=== PATIENT | female | born 1990 | race Caucasian/White ===

== ENCOUNTER 2018-03-06 13:10 | Emergency (ER) | payer OTHER ==
[~2018-03-06] VITALS: Ht 167.6 cm; Wt 74.8 kg
[~2018-03-06 13:10] MED LIST: CATAFLAM50 MG PO; SINGULAIR10 MG; URETRON D-S TAB1 TAB PO
== END 2018-03-06 18:00 | disposition home or self-care (01) ==
LOC: ER 13:10
DX: N83.291 Other ovarian cyst, right side (principal)

== ENCOUNTER 2019-06-17 11:39 | Outpatient (CLI) | payer OTHER | END 2019-06-17 11:52 | disposition home or self-care (01) | LOC: NUCLEAR 11:39 | DX: I20.9 Angina pectoris, unspecified (principal) ==

== ENCOUNTER 2020-02-01 19:39 | Emergency (ER) | payer OTHER ==
[~2020-02-01] VITALS: Ht 167.6 cm; Wt 70.3 kg
[2020-02-01] MEDS ORDERED: SPIRIVA RESPIMAT4 G1 IH (20:20)
== END 2020-02-01 21:57 | disposition home or self-care (01) ==
LOC: ER 19:39
DX: S50.01XA Contusion of right elbow, initial encounter (principal); W18.09XA Striking against other object with subsequent fall, initial encounter; Y93.89 Activity, other specified; Y92.89 Other specified places as the place of occurrence of the external cause; Y99.8 Other external cause status

== ENCOUNTER 2020-06-10 01:34 | Emergency (ER) | payer OTHER ==
[~2020-06-10] VITALS: Ht 167.6 cm; Wt 68.0 kg
[~2020-06-10 01:34] MED LIST changes: +SPIRIVA RESPIMAT4 G1 IH
[2020-06-10] MEDS ORDERED: INTESTINEX680 M1 PO (06:04)
[2020-06-10] MEDS ORDERED: AZITHROMYCIN250 MG PO (06:04)
[2020-06-10] MEDS ORDERED: PEPCID AC20 MG PO (06:04)
== END 2020-06-10 07:42 | disposition home or self-care (01) ==
LOC: ER 01:34
DX: K52.89 Other specified noninfective gastroenteritis and colitis (principal); B34.9 Viral infection, unspecified; B96.0 Mycoplasma pneumoniae [M. pneumoniae] as the cause of diseases classified elsewhere; Z20.822 Contact with and (suspected) exposure to COVID-19

== ENCOUNTER 2021-03-19 15:56 | Emergency (ER) | payer OTHER ==
[~2021-03-19] VITALS: Ht 167.6 cm; Wt 73.9 kg
[~2021-03-19 15:56] MED LIST changes: +AZITHROMYCIN250 MG PO; +INTESTINEX680 M1 PO; +PEPCID AC20 MG PO
== END 2021-03-19 19:36 | disposition home or self-care (01) ==
LOC: ER 15:56
DX: N20.0 Calculus of kidney (principal); R10.31 Right lower quadrant pain; Z03.818 Encounter for observation for suspected exposure to other biological agents ruled out